=== PATIENT | male | born 1975 | race Caucasian/White ===

== ENCOUNTER 2018-02-16 09:45 | Emergency (ER) | payer BC ==
[~2018-02-16] VITALS: Ht 188 cm; Wt 140.6 kg
[~2018-02-16 09:45] MED LIST: ABILIFY 5 MG TAB5 MG PO; ABILIFY20 MG PO; AMBIEN 10 MG TA10 MG PO; AMOXICILLIN 50500 MG PO; BACLOFEN PO; BUTRANS1 EAC1 TD; CEFDINIR300 MG PO; CIALIS20 MG PO; CLONAZEPAM 0.50.5 M1 PO; COMPAZINE10 MG PO; CYCLOBENZAPRINE10 MG PO; CYMBALTA30 MG PO; DILAUDID 2 MG TA2 MG PO; EFFEXOR XR150 MG; FLEXERIL PO; HYDROCODON-ACE1 EAC5 PO; HYDROCODONE-AP1 EAC6 PO; INDERAL; LAMICTAL XR300 MG; LAMICTAL100 MG PO; LEVAQUIN 500 M500 MG PO; LEVOTHYROXIN0.025 MG; LIORESAL 10 MG10 MG PO; LITHIUM CARBON150 MG PO; MAXALT MLT ODT10 M1 PO; MAXALT10 MG PO; NAPROXEN DELAY500 M1; NORCO 5-325 TA1 EAC1 PO; OMEPRAZOLE40 MG PO; OXYCODONE HCL 55 MG PO; PREDNISONE 20 M20 M1 PO; PROPRANOLOL 1010 MG PO; REQUIP4 MG PO; SEROQUEL 25 MG25 M1 PO; TOPAMAX50 MG PO; VICODIN 5-3001 EACH PO; XANAX 0.5 MG0.5 MG; XARELTO15 MG PO; XARELTO20 MG PO; ZOFRAN ODT4 MG PO; ZOLOFT25 MG PO; ZOLOFT50 MG PO; [UNRECOGNIZED DRUG - OTHER]
[2018-02-16 10:17] LABS: ABSOLUTE BASOPHILS 0.1 thou/uL (0.0-0.2); ABSOLUTE EOSINOPHILS 0.3 thou/uL (0.0-0.7); ABSOLUTE LYMPHOCYTES 1.9 thou/uL (0.8-5.3); ABSOLUTE MONOCYTES 0.5 thou/uL (0.0-1.2); ABSOLUTE NEUTROPHILS 6.8 thou/uL (1.6-8.1); BASOPHILS 0.9 %; HEMATOCRIT 42.6 % (42.0-52.0); HEMOGLOBIN 14.6 gm/dL (14.0-18.0); LYMPHOCYTES 20.1 %; MCH 29.5 pg (26.0-34.0); MCHC 34.2 g/dL (28.0-37.0); MCV 86.3 fL (80.0-100.0); MONOCYTES 5.2 %; MPV 7.1 fl. (7.2-11.1); NUCLEATED RBCS 0 /100WBC; PLATELET COUNT* 299 thou/uL (150-400); POLYS 70.8 %; RBC 4.94 mil/uL (4.50-6.00); WBC 9.5 thou/uL (4.0-11.0)
[2018-02-16 10:24] LABS: CALCIUM 8.6 mg/dL (8.5-10.1); CREATININE 1.4 mg/dL (0.6-1.3); POTASSIUM 3.9 mmol/L (3.5-5.1)
[2018-02-16 10:29] LABS: ALBUMIN 3.9 g/dL (3.4-5.0); TOTAL BILIRUBIN 0.4 mg/dL (<0.1-1.0); TOTAL PROTEIN 7.1 g/dL (6.4-8.2)
[2018-02-16 11:33] LABS: URINE BILIRUBIN NEGATIVE (Negative); URINE BLOOD NEGATIVE (Negative); URINE CLARITY CLEAR; URINE COLOR YELLOW; URINE GLUCOSE-RANDOM NEGATIVE (Negative); URINE KETONES NEGATIVE (Negative); URINE LEUKOCYTES-REFLEX NEGATIVE (Negative); URINE NITRITE-REFLEX NEGATIVE (Negative); URINE PROTEIN NEGATIVE (Negative); URINE SPECIFIC GRAVITY 1.025 (1.005-1.030); URINE UROBILINOGEN 0.2 E.U./dl (0.2-1.0)
[2018-02-16] MEDS ORDERED: ZOFRAN ODT4 MG PO (13:36)
[2018-02-16 13:45] VITALS: BP 119/70
== END 2018-02-16 13:45 | disposition home or self-care (01) ==
LOC: M.ERS 09:45
PROVIDERS: Nurse Practitioner Family
DX: R19.7 Diarrhea, unspecified (principal); R11.2 Nausea with vomiting, unspecified; R10.9 Unspecified abdominal pain; E03.9 Hypothyroidism, unspecified; I10 Essential (primary) hypertension; K21.9 Gastro-esophageal reflux disease without esophagitis

== ENCOUNTER 2019-08-12 08:07 | Emergency (ER) | payer BC ==
[~2019-08-12] VITALS: Ht 188 cm; Wt 136.1 kg
[2019-08-12] MEDS ORDERED: METFORMIN HCL500 MG PO (08:21)
[2019-08-12] MEDS ORDERED: LAMICTAL100 MG PO (08:21)
[2019-08-12] MEDS ORDERED: AMBIEN 5 MG TABL5 M1 PO (08:21)
[2019-08-12] MEDS ORDERED: XANAX1 MG PO (08:21)
[2019-08-12] MEDS ORDERED: FARXIGA5 MG PO (08:22)
[2019-08-12] MEDS ORDERED: NORCO 5-325 TA1 EAC1 PO (09:09)
[2019-08-12 09:18] VITALS: BP 148/97
== END 2019-08-12 09:19 | disposition home or self-care (01) ==
LOC: M.ERS 08:07
DX: L02.11 Cutaneous abscess of neck (principal); I10 Essential (primary) hypertension; E11.9 Type 2 diabetes mellitus without complications; E03.9 Hypothyroidism, unspecified; F41.9 Anxiety disorder, unspecified; F32.9 Major depressive disorder, single episode, unspecified; M51.36 Other intervertebral disc degeneration, lumbar region; K21.9 Gastro-esophageal reflux disease without esophagitis; Z98.890 Other specified postprocedural states; Z86.711 Personal history of pulmonary embolism

== ENCOUNTER 2019-09-04 19:31 | Emergency (ER) | payer BC ==
[~2019-09-04] VITALS: Ht 188 cm; Wt 124.7 kg
[~2019-09-04 19:31] MED LIST changes: +AMBIEN 5 MG TABL5 M1 PO; +FARXIGA5 MG PO; +METFORMIN HCL500 MG PO; +XANAX1 MG PO
[2019-09-04] MEDS ORDERED: LATUDA80 MG PO (19:46)
[2019-09-04] MEDS ORDERED: METFORMIN HCL500 M3 PO (19:46)
[2019-09-04] MEDS ORDERED: AMBIEN 10 MG TA10 MG PO (19:46)
[2019-09-04] MEDS ORDERED: LEVO-T75 MCG PO (19:47)
[2019-09-04 21:17] VITALS: BP 136/79
== END 2019-09-04 22:16 | disposition home or self-care (01) ==
LOC: M.ERS 19:31
DX: G43.909 Migraine, unspecified, not intractable, without status migrainosus (principal); I10 Essential (primary) hypertension; F32.9 Major depressive disorder, single episode, unspecified; F41.9 Anxiety disorder, unspecified; K21.9 Gastro-esophageal reflux disease without esophagitis; E03.9 Hypothyroidism, unspecified; E11.9 Type 2 diabetes mellitus without complications; Z86.711 Personal history of pulmonary embolism

== ENCOUNTER 2019-09-11 15:03 | Emergency (ER) | payer BC ==
[~2019-09-11] VITALS: Ht 188 cm; Wt 124.7 kg
[~2019-09-11 15:03] MED LIST changes: +LATUDA80 MG PO; +LEVO-T75 MCG PO; +METFORMIN HCL500 M3 PO
[2019-09-11] MEDS ORDERED: MAXALT10 MG PO (15:43)
[2019-09-11] MEDS ORDERED: ZOFRAN ODT4 MG PO (15:44)
[2019-09-11 16:15] VITALS: BP 115/80
== END 2019-09-11 16:16 | disposition home or self-care (01) ==
LOC: M.ERS 15:03
DX: G43.909 Migraine, unspecified, not intractable, without status migrainosus (principal); R11.2 Nausea with vomiting, unspecified; Z76.0 Encounter for issue of repeat prescription; F32.9 Major depressive disorder, single episode, unspecified; F41.9 Anxiety disorder, unspecified; E03.9 Hypothyroidism, unspecified; I10 Essential (primary) hypertension; K21.9 Gastro-esophageal reflux disease without esophagitis; E11.9 Type 2 diabetes mellitus without complications

== ENCOUNTER 2019-11-21 13:00 | Emergency (ER) | payer BC ==
[~2019-11-21] VITALS: Ht 188 cm; Wt 124.7 kg
[2019-11-21 13:02] VITALS: BP 138/97
[2019-11-21 14:51] LABS: INFLUENZA A ANTIGEN Negative (Negative); INFLUENZA B ANTIGEN Negative (Negative)
== END 2019-11-21 15:11 | disposition home or self-care (01) ==
LOC: M.ERS 13:00
PROVIDERS: Emergency Medicine
DX: Z53.21 Procedure and treatment not carried out due to patient leaving prior to being seen by health care provider (principal)

== ENCOUNTER 2020-06-19 15:37 | Emergency (ER) | payer BC ==
[~2020-06-19] VITALS: Ht 188 cm; Wt 124.7 kg
[2020-06-19 18:11] VITALS: BP 132/79
== END 2020-06-19 18:11 | disposition home or self-care (01) ==
LOC: M.ERS 15:37
DX: G43.909 Migraine, unspecified, not intractable, without status migrainosus (principal); I10 Essential (primary) hypertension; E11.9 Type 2 diabetes mellitus without complications; E03.9 Hypothyroidism, unspecified; K21.9 Gastro-esophageal reflux disease without esophagitis; F32.9 Major depressive disorder, single episode, unspecified; F41.9 Anxiety disorder, unspecified; Z86.711 Personal history of pulmonary embolism

== ENCOUNTER 2020-07-09 23:24 | Emergency (ER) | payer BC ==
[~2020-07-09] VITALS: Ht 188 cm; Wt 129.3 kg
[2020-07-09 23:59] LABS: ABSOLUTE BASOPHILS 0.1 thou/uL (0.0-0.2); ABSOLUTE EOSINOPHILS 0.3 thou/uL (0.0-0.7); ABSOLUTE LYMPHOCYTES 2.1 thou/uL (0.8-5.3); ABSOLUTE MONOCYTES 0.8 thou/uL (0.0-1.2); ABSOLUTE NEUTROPHILS 12.5 thou/uL (1.6-8.1); BASOPHILS 0.7 %; EOSINOPHILS 2.2 %; HEMATOCRIT 52.1 % (42.0-52.0); HEMOGLOBIN 17.7 gm/dL (14.0-18.0); LYMPHOCYTES 13.2 %; MCH 29.8 pg (26.0-34.0); MCV 87.5 fL (80.0-100.0); MONOCYTES 5.2 %; MPV 7.2 fl. (7.2-11.1); NUCLEATED RBCS 0 /100WBC; PLATELET COUNT* 575 thou/uL (150-400); POLYS 78.7 %; RBC 5.96 mil/uL (4.50-6.00); RDW-CV 14.9 % (10.5-14.5); WBC 15.9 thou/uL (4.0-11.0)
[2020-07-10 00:08] LABS: CALCIUM 9.6 mg/dL (8.5-10.1); CREATININE 1.4 mg/dL (0.6-1.3); POTASSIUM 4.4 mmol/L (3.5-5.1)
[2020-07-10 00:12] LABS: INR 1.2; PROTIME 12.3 Seconds (9.20-11.50)
[2020-07-10 00:19] LABS: ALBUMIN 4.8 g/dL (3.4-5.0); MAGNESIUM 2.3 mg/dL (1.8-2.4); TOTAL BILIRUBIN 0.7 mg/dL (<0.1-1.0)
[2020-07-10 01:17] LABS: URINE BLOOD TRACE (Negative); URINE CLARITY CLEAR; URINE COLOR DARK YELLOW; URINE GLUCOSE-RANDOM 2+ (Negative); URINE KETONES TRACE (Negative); URINE LEUKOCYTES-REFLEX NEGATIVE (Negative); URINE NITRITE-REFLEX NEGATIVE (Negative); URINE PROTEIN 2+ (Negative); URINE SPECIFIC GRAVITY >= 1.030 (1.005-1.030)
[2020-07-10 01:22] LABS: ICTOTEST (BILI CONFIRMATORY) Negative (Negative); URINE BILIRUBIN 2+ (Negative)
[2020-07-10] MEDS ORDERED: DIFLUCAN150 MG PO (01:24)
[2020-07-10] MEDS ORDERED: KETOCONAZOLE15 GM TOP (01:24)
[2020-07-10] MEDS ORDERED: ZOFRAN ODT4 MG PO (01:26)
[2020-07-10 01:30] LABS: BACTERIA-REFLEX 1-9 Few /HPF (None Seen); HYALINE CASTS >10 Many /LPF (None Seen); MUCUS >6 Heavy strn/LPF (None Seen)
[2020-07-10 01:31] LABS: CRYSTALS None Seen /LPF (None Seen); SQUAMOUS 0-3 Few /LPF (0-3); URINE RBC 0-2 Rare /HPF (0-2)
[2020-07-10 01:32] LABS: URINE WBC-REFLEX 0-5 Rare /HPF (0-5)
[2020-07-10 01:43] VITALS: BP 131/85
--- NOTE | 2020-07-10 10:14 | EKG ---
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 : 1975 Requested By: Jenn Reyes Order Number: [id number] MD: Ramon Anderson Measurements Intervals [place] Rate: 83 P: 67 [place]: 178 QRS: -65 QRSD: 110 T: 84 QT: 369 QTc: 434 Interpretive Statements Sinus rhythm LAD, consider left anterior fascicular block Consider RVH w/ secondary repol abnormality Compared to ECG 09/10/2017 10:22:58 Sinus tachycardia no longer present Electronically Signed On 07-10-2020 10:13:45 CDT by Ramon Anderson [email or web address] <ELECTRONICALLY SIGNED> By: Ramon Anderson MD, [facility] 07/10/20 1013 2330 2330 Ramon Anderson MD, [facility] /EPI
== END 2020-07-10 01:44 | disposition home or self-care (01) ==
LOC: M.ERS 23:24
PROVIDERS: Emergency Medicine
DX: F41.9 Anxiety disorder, unspecified (principal); B37.49 Other urogenital candidiasis; R10.11 Right upper quadrant pain; R10.12 Left upper quadrant pain; R10.13 Epigastric pain; R11.2 Nausea with vomiting, unspecified; F32.9 Major depressive disorder, single episode, unspecified; E03.9 Hypothyroidism, unspecified; I10 Essential (primary) hypertension; K21.9 Gastro-esophageal reflux disease without esophagitis; E11.9 Type 2 diabetes mellitus without complications; G43.909 Migraine, unspecified, not intractable, without status migrainosus; Z87.01 Personal history of pneumonia (recurrent); Z86.711 Personal history of pulmonary embolism

== ENCOUNTER 2020-08-13 17:07 | Emergency (ER) | payer BC ==
[~2020-08-13] VITALS: Ht 188 cm; Wt 120.2 kg
[~2020-08-13 17:07] MED LIST changes: +DIFLUCAN150 MG PO; +KETOCONAZOLE15 GM TOP
[2020-08-13 17:49] LABS: ABSOLUTE BASOPHILS 0.1 thou/uL (0.0-0.2); ABSOLUTE LYMPHOCYTES 1.9 thou/uL (0.8-5.3); ABSOLUTE MONOCYTES 0.7 thou/uL (0.0-1.2); ABSOLUTE NEUTROPHILS 11.5 thou/uL (1.6-8.1); BASOPHILS 0.8 %; EOSINOPHILS 0.1 %; HEMATOCRIT 46.8 % (42.0-52.0); HEMOGLOBIN 16.5 gm/dL (14.0-18.0); LYMPHOCYTES 13.2 %; MCH 30.6 pg (26.0-34.0); MCHC 35.2 g/dL (28.0-37.0); MONOCYTES 4.8 %; MPV 6.5 fl. (7.2-11.1); NUCLEATED RBCS 0 /100WBC; PLATELET COUNT* 496 thou/uL (150-400); POLYS 81.1 %; RBC 5.38 mil/uL (4.50-6.00); RDW-CV 15.5 % (10.5-14.5); WBC 14.2 thou/uL (4.0-11.0)
[2020-08-13 18:01] LABS: CALCIUM 10.3 mg/dL (8.5-10.1); CREATININE 1.2 mg/dL (0.6-1.3)
[2020-08-13 18:02] LABS: POTASSIUM 5.6 mmol/L (3.5-5.1)
[2020-08-13 18:05] LABS: ALBUMIN 4.8 g/dL (3.4-5.0); TOTAL BILIRUBIN 1.2 mg/dL (<0.1-1.0)
[2020-08-13] MEDS ORDERED: ZOFRAN ODT4 MG SUBLING (19:00)
[2020-08-13 19:22] VITALS: BP 148/84
--- NOTE | 2020-08-14 10:35 | EKG ---
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1975 Requested By: Alonso Novoa Order Number: [id number] MD: Teja Pascual Measurements Intervals [place] Rate: 82 P: 46 [place]: 169 QRS: -52 QRSD: 98 T: 66 QT: 387 QTc: 452 Interpretive Statements Sinus rhythm LAD, consider left anterior fascicular block Nonspecific ST-T abnormalities Compared to ECG 07/09/2020 23:30:00 No significant changes Electronically Signed On 08-14-2020 10:35:35 CDT by Teja Pascual [email or web address] <ELECTRONICALLY SIGNED> By: Teja Pascual MD, [facility] 08/14/20 1035 1804 1804 Teja Pascual MD, [facility] /EPI
== END 2020-08-13 19:23 | disposition home or self-care (01) ==
LOC: M.ERS 17:07
PROVIDERS: Family Medicine
DX: R11.2 Nausea with vomiting, unspecified (principal); R10.33 Periumbilical pain; I10 Essential (primary) hypertension; K21.9 Gastro-esophageal reflux disease without esophagitis; E11.9 Type 2 diabetes mellitus without complications; G43.909 Migraine, unspecified, not intractable, without status migrainosus; E03.9 Hypothyroidism, unspecified; Z79.899 Other long term (current) drug therapy; Z98.890 Other specified postprocedural states

== ENCOUNTER 2020-11-29 16:38 | Emergency (ER) | payer BC ==
[~2020-11-29] VITALS: Ht 188 cm; Wt 120.2 kg
[~2020-11-29 16:38] MED LIST changes: -LITHIUM CARBON150 MG PO; +LITHIUM CARBON300 M3 PO; +ZOFRAN ODT4 MG SUBLING
[2020-11-29] MEDS ORDERED: TRESIBA FL100 UNIT/1 SUBQ (17:00)
[2020-11-29 17:10] LABS: ABSOLUTE BASOPHILS 0.2 thou/uL (0.0-0.2); ABSOLUTE EOSINOPHILS 0.3 thou/uL (0.0-0.7); ABSOLUTE LYMPHOCYTES 3.6 thou/uL (0.8-5.3); ABSOLUTE MONOCYTES 0.8 thou/uL (0.0-1.2); ABSOLUTE NEUTROPHILS 8.7 thou/uL (1.6-8.1); BASOPHILS 1.3 %; EOSINOPHILS 2.4 %; HEMATOCRIT 48.2 % (42.0-52.0); HEMOGLOBIN 16.4 gm/dL (14.0-18.0); LYMPHOCYTES 26.4 %; MCH 29.4 pg (26.0-34.0); MCV 86.5 fL (80.0-100.0); MPV 6.8 fl. (7.2-11.1); NUCLEATED RBCS 0 /100WBC; PLATELET COUNT* 488 thou/uL (150-400); POLYS 63.9 %; RBC 5.57 mil/uL (4.50-6.00); RDW-CV 13.5 % (10.5-14.5); WBC 13.6 thou/uL (4.0-11.0)
[2020-11-29 17:12] LABS: CALCIUM 9.9 mg/dL (8.5-10.1); CREATININE 1.1 mg/dL (0.6-1.3); POTASSIUM 4.6 mmol/L (3.5-5.1)
[2020-11-29 17:17] LABS: ALBUMIN 4.2 g/dL (3.4-5.0); TOTAL BILIRUBIN 0.3 mg/dL (<0.1-1.0); TOTAL PROTEIN 7.8 g/dL (6.4-8.2)
[2020-11-29 17:29] LABS: ACETAMINOPHEN < 2 ug/mL (10-30); ALCOHOL < 10 mg/dL (<10); SALICYLATE < 2.8 mg/dL (2.8-20.0)
[2020-11-29 18:53] LABS: URINE BILIRUBIN NEGATIVE (Negative); URINE BLOOD NEGATIVE (Negative); URINE CLARITY CLEAR; URINE COLOR YELLOW; URINE GLUCOSE-RANDOM 3+ (Negative); URINE KETONES NEGATIVE (Negative); URINE LEUKOCYTES-REFLEX NEGATIVE (Negative); URINE NITRITE-REFLEX NEGATIVE (Negative); URINE PROTEIN NEGATIVE (Negative); URINE UROBILINOGEN 0.2 E.U./dl (0.2-1.0)
[2020-11-29 18:59] LABS: AMP/METHAMP Negative (Negative); BARBITURATES Negative (Negative); BENZODIAZEPINES POSITIVE (Negative); COCAINE Negative (Negative); METHADONE Negative (Negative); OPIATES Negative (Negative); PCP Negative (Negative); THC Negative (Negative)
[2020-11-30 11:50] VITALS: BP 130/84
--- NOTE | 2020-11-30 13:48 | EKG ---
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1975 Requested By: Aime Saldivar Order Number: [id number] MD: Ramon Anderson Measurements Intervals [place] Rate: 82 P: -1 [place]: 170 QRS: -39 QRSD: 101 T: 30 QT: 362 QTc: 423 Interpretive Statements Sinus rhythm Left axis deviation RBBB Compared to ECG 08/13/2020 18:04:18 RIGHT BUNDLE BRANCH BLOCK now present Electronically Signed On 11-30-2020 13:48:08 [email or web address] by Ramon Anderson [email or web address] <ELECTRONICALLY SIGNED> By: Ramon Anderson MD, [facility] 11/30/20 1348 1707 1707 Ramon Anderson MD, [facility] /EPI
== END 2020-11-30 11:51 | disposition short-term general hospital (02) ==
LOC: M.ERS 16:38
PROVIDERS: Emergency Medicine Emergency Medical Services
DX: T42.4X2A Poisoning by benzodiazepines, intentional self-harm, initial encounter (principal); T42.6X2A Poisoning by other antiepileptic and sedative-hypnotic drugs, intentional self-harm, initial encounter; F32.9 Major depressive disorder, single episode, unspecified; E11.9 Type 2 diabetes mellitus without complications; G43.909 Migraine, unspecified, not intractable, without status migrainosus; F41.9 Anxiety disorder, unspecified; E03.9 Hypothyroidism, unspecified; I10 Essential (primary) hypertension; K21.9 Gastro-esophageal reflux disease without esophagitis; Z86.711 Personal history of pulmonary embolism; Z87.01 Personal history of pneumonia (recurrent); Z79.4 Long term (current) use of insulin; Y92.89 Other specified places as the place of occurrence of the external cause

== ENCOUNTER 2021-02-23 23:38 | Emergency (ER) | payer BC ==
[~2021-02-23] VITALS: Ht 188 cm; Wt 122.5 kg
[~2021-02-23 23:38] MED LIST changes: +TRESIBA FL100 UNIT/1 SUBQ
[2021-02-23] MEDS ORDERED: SEROQUEL400 MG PO (23:48)
[2021-02-24 00:17] LABS: URINE BILIRUBIN NEGATIVE (Negative); URINE BLOOD NEGATIVE (Negative); URINE CLARITY CLEAR; URINE COLOR YELLOW; URINE GLUCOSE-RANDOM 3+ (Negative); URINE KETONES NEGATIVE (Negative); URINE LEUKOCYTES NEGATIVE (Negative); URINE NITRITE NEGATIVE (Negative); URINE PROTEIN NEGATIVE (Negative); URINE SPECIFIC GRAVITY 1.015 (1.005-1.030); URINE UROBILINOGEN 0.2 E.U./dl (0.2-1.0)
[2021-02-24 00:18] LABS: HEMATOCRIT 42.9 % (42.0-52.0); HEMOGLOBIN 14.3 gm/dL (14.0-18.0); MCH 28.9 pg (26.0-34.0); MCHC 33.4 g/dL (28.0-37.0); MCV 86.5 fL (80.0-100.0); MPV 6.9 fl. (7.2-11.1); RBC 4.96 mil/uL (4.50-6.00); RDW-CV 14.2 % (10.5-14.5); WBC 12.5 thou/uL (4.0-11.0)
[2021-02-24 00:23] LABS: CALCIUM 8.8 mg/dL (8.5-10.1); CREATININE 1.2 mg/dL (0.6-1.3); POTASSIUM 3.5 mmol/L (3.5-5.1)
[2021-02-24 00:24] LABS: AMP/METHAMP Negative (Negative); BARBITURATES Negative (Negative); BENZODIAZEPINES POSITIVE (Negative); COCAINE Negative (Negative); METHADONE Negative (Negative); OPIATES Negative (Negative); PCP Negative (Negative); THC Negative (Negative)
[2021-02-24 00:27] LABS: ALBUMIN 3.7 g/dL (3.4-5.0); TOTAL BILIRUBIN 0.5 mg/dL (<0.1-1.0); TOTAL PROTEIN 7.3 g/dL (6.4-8.2)
[2021-02-24 00:44] LABS: SALICYLATE < 2.8 mg/dL (2.8-20.0)
[2021-02-24 00:45] LABS: ACETAMINOPHEN < 2 ug/mL (10-30); ALCOHOL < 10 mg/dL (<10)
[2021-02-24] MEDS ORDERED: PHENERGAN 25 MG25 M1 PO (00:59)
[2021-02-24 01:53] VITALS: BP 134/90
== END 2021-02-24 01:55 | disposition home or self-care (01) ==
LOC: M.ERS 23:38
PROVIDERS: Personal Emergency Response Attendant
DX: G43.909 Migraine, unspecified, not intractable, without status migrainosus (principal); E11.65 Type 2 diabetes mellitus with hyperglycemia; E03.9 Hypothyroidism, unspecified; I10 Essential (primary) hypertension; K21.9 Gastro-esophageal reflux disease without esophagitis; Z87.01 Personal history of pneumonia (recurrent); Z86.711 Personal history of pulmonary embolism; Z79.899 Other long term (current) drug therapy

== ENCOUNTER 2021-04-12 11:32 | Emergency (ER) | payer BC ==
[~2021-04-12] VITALS: Ht 188 cm; Wt 127.0 kg
[~2021-04-12 11:32] MED LIST changes: +GLYBURIDE 5 MG T5 M1 PO; +LANTUS SUBQ; +LATUDA120 MG PO; -LATUDA80 MG PO; +LIPITOR 20 MG T20 M1 PO; -LITHIUM CARBON300 M3 PO; +LITHIUM CARBON450 MG PO; +PHENERGAN 25 MG25 M1 PO; +SEROQUEL400 MG PO; +XARELTO10 M1 PO
[2021-04-12] MEDS ORDERED: NORCO5 PO ×2 (13:55→15:03)
[2021-04-12 14:11] VITALS: BP 127/84
== END 2021-04-12 14:11 | disposition home or self-care (01) ==
LOC: M.ERS 11:32
DX: S32.020A Wedge compression fracture of second lumbar vertebra, initial encounter for closed fracture (principal); M25.522 Pain in left elbow; M25.561 Pain in right knee; E03.9 Hypothyroidism, unspecified; I10 Essential (primary) hypertension; K21.9 Gastro-esophageal reflux disease without esophagitis; E11.9 Type 2 diabetes mellitus without complications; G43.909 Migraine, unspecified, not intractable, without status migrainosus; Z87.01 Personal history of pneumonia (recurrent); Z79.4 Long term (current) use of insulin; X58.XXXA Exposure to other specified factors, initial encounter; Y93.89 Activity, other specified; Y92.89 Other specified places as the place of occurrence of the external cause; Y99.8 Other external cause status

== ENCOUNTER 2021-08-25 14:49 | Emergency (ER) | payer BC ==
[~2021-08-25] VITALS: Ht 188 cm; Wt 127.0 kg
[~2021-08-25 14:49] MED LIST changes: +NORCO5 PO
[2021-08-25] MEDS ORDERED: SUMATRIPTAN PO (14:58)
[2021-08-25 16:48] VITALS: BP 134/72
== END 2021-08-25 16:48 | disposition home or self-care (01) ==
LOC: M.ERS 14:49
DX: G43.909 Migraine, unspecified, not intractable, without status migrainosus (principal); F32.9 Major depressive disorder, single episode, unspecified; F41.9 Anxiety disorder, unspecified; E03.9 Hypothyroidism, unspecified; K21.9 Gastro-esophageal reflux disease without esophagitis; E11.9 Type 2 diabetes mellitus without complications; Z98.890 Other specified postprocedural states; Z79.4 Long term (current) use of insulin; Z79.899 Other long term (current) drug therapy